=== PATIENT | female | born 1975 | race Caucasian/White ===

== ENCOUNTER → 2019-01-23 10:24 | Outpatient (CLI) | payer OTHER ==
[2015-05-21 06:17] VITALS: BMI 41.6
[~2019-01-23 10:24] MED LIST: AMBIEN10 MG PO; ATIVAN0.5 MG PO; BENZTROPINE MESY2 MG PO; COREG6.25 MG PO; CYMBALTA60 MG PO; FROVA PO; HYDROCODON-ACE1 EAC7 PO; HYZAAR 100-25 T1 TAB PO; LAMICTAL200 MG PO; PRILOSEC20 MG PO; QNASL NASAL; SEROQUEL200 MG PO; ZOCOR20 MG PO
== END | disposition home or self-care (01) ==
LOC: D.NM 10:24
PROVIDERS: ATTEND Internal Medicine Gastroenterology
DX: R11.0 Nausea (principal)